=== PATIENT | female | born 1955 | race African-American/Black ===

== ENCOUNTER 2024-06-13 15:28 | Emergency (ER) | payer MEDICARE ==
[~2024-06-13] VITALS: Ht 167.6 cm; Wt 79.5 kg
[2024-06-13] MEDS ORDERED: JARDIANCE25 MG (16:34)
[2024-06-13] MEDS ORDERED: ISOSORBIDE MONO30 MG PO (16:34)
[2024-06-13] MEDS ORDERED: ASPIRIN EC81 MG PO (16:34)
[2024-06-13] MEDS ORDERED: CYCLOBENZAPRINE5 MG PO (17:04)
[2024-06-13] MEDS ORDERED: ULTRAM 50MG50 MG PO (17:05)
[2024-06-13] MEDS ORDERED: IBUPROFEN600 MG PO (17:06)
[2024-06-13] MEDS: KETOROLAC TROMETHAMINE 60 MG/2 ML VIAL IM ONE (17:29)
[2024-06-13 17:32] VITALS: PULSE 60; RESP 16; TEMP 98.1; O2SAT 98
== END 2024-06-13 17:39 | disposition home or self-care (01) ==
LOC: FSED 15:33
DX: M54.50 Low back pain, unspecified (principal); M46.1 Sacroiliitis, not elsewhere classified; I10 Essential (primary) hypertension; E11.9 Type 2 diabetes mellitus without complications; E78.5 Hyperlipidemia, unspecified; F17.210 Nicotine dependence, cigarettes, uncomplicated
CPT/HCPCS: 81003; 96372; 99283; J1885